=== PATIENT | male | born 1975 ===

== ENCOUNTER 2017-03-25 16:23 | Emergency (ER) | payer SELFPAY ==
[2017-03-25 17:28] VITALS: BP 110/69
== END 2017-03-26 00:49 | disposition left against medical advice (07) ==
LOC: ED 16:23
DX: M25.511 Pain in right shoulder (principal); R73.9 Hyperglycemia, unspecified; Z87.891 Personal history of nicotine dependence; Z53.21 Procedure and treatment not carried out due to patient leaving prior to being seen by health care provider
CPT/HCPCS: 82962